=== PATIENT | male | born 1980 | race Caucasian/White ===

== ENCOUNTER 2021-07-31 10:28 | Emergency (ER) | payer BC ==
[~2021-07-31] VITALS: Ht 172.7 cm; Wt 99.7 kg
[2021-07-31] MEDS ORDERED: ASPIRIN 81 MG CHEW (CHILDREN'S ASA) PO ONE (10:45)
[2021-07-31] MEDS ORDERED: NITROGLYCERIN 0.4 MG SL TABS BTL 25'S SL PRN (10:45)
--- NOTE | 2021-07-31 10:48 | ED Chest Pain ---
General Chief Complaint: Chest Pain Stated Complaint: CHEST PAIN Source: patient Exam Limitations: no limitations History of Present Illness Date Seen by Provider: Jul 31, 2021 Time Seen by Provider: 10:30 Initial Comments Patient to the ER by private conveyance from home with chief complaint that he is having some chest pain starting on his right lower chest radiating over to his left lower chest. Not going to the back. He is having some intermittent chest pain radiating to his left shoulder as well as his right jaw. He has a history of a stent couple years ago. He is followed by Dr. Diego and primary care at [place]. He is not having any shortness of air, orthopnea, swelling in the hands or legs. He is not having nausea fevers chills cough shortness of air. He has exercise intolerance and getting up and moving makes it worse. He says it started yesterday and has been consistent since then. He was sitting at his desk when it started not doing anything strenuous. Smokes, uses some marijuana occasionally. No history of diabetes. Does have a history of hypertension hypercholesterolemia. Allergies and Home Medications Allergies Coded Allergies: No Known Drug Allergies (Unverified , 07/31/21) Patient Home Medication List Home Medication List Reviewed: Yes Review of Systems Review of Systems Constitutional: No chills, No fever, No malaise EENTM: No Blurred Vision, No Double Vision Respiratory: Denies Cough, Denies Shortness of Air Cardiovascular: See HPI, Chest Pain; Denies Lightheadedness, Denies Palpitations Gastrointestinal: Denies Abdominal Pain, Denies Constipated, Denies Diarrhea, Denies Difficulty Swallowing, Denies Nausea Genitourinary: Denies Burning, Denies Discharge Musculoskeletal: No back pain, No joint pain Skin: No pruritus, No rash Psychiatric/Neurological: Denies Anxiety, Denies Depressed All Other Systems Reviewed Negative Unless Noted: Yes Past Vyebcmk-Opijgs-Kvfwst Hx Patient Social History Tobacco Use?: Yes Tobacco type used: Cigarettes Smoking Status: Current Someday Smoker Use of E-Cig and/or Vaping dev: No Substance use?: Yes Substance type: Marijuana Pt feels they are or have been: No Immunizations Up To Date Influenza Vaccine Up-to-Date: No; Not Current Past Medical History Surgery/Hospitalization HX: STENT Physical Exam Vital Signs Vital Signs - First Documented 07/31/21 10:35 Pulse 76 Resp 17 B/P (MAP) 156/98 (117) Pulse Ox 98 O2 Delivery Room Air Capillary Refill : Less Than 3 Seconds Height, Weight, BMI Height: '" Weight: lbs. oz. kg; BMI Method: General Appearance: WD/WN, Anxious HEENT: PERRL/EOMI, TMs Normal, Pharynx Normal, Moist Mucous Membranes Neck: Normal Inspection, Non Tender Respiratory: No Chest Non Tender (And chest pain reproducible by direct palpation over the costal margins anteriorly bilaterally.); Lungs Clear, Normal Breath Sounds, No Accessory Muscle Use, No Respiratory Distress Cardiovascular: Regular Rate, Rhythm, No Edema, Normal Peripheral Pulses Gastrointestinal: Normal Bowel Sounds, Non Tender, Soft Extremity: Normal Capillary Refill, Normal Inspection, No Pedal Edema Neurologic/Psychiatric: Alert, Oriented x3 Skin: Normal Color, Warm/Dry Progress/Results/Core Measures Results/Orders Lab Results Laboratory Tests Test 07/31/21 10:55 07/31/21 13:06 Range/Units White Blood Count 10.9 4.3-11.0 10^3/uL Red Blood Count 5.23 4.30-5.52 10^6/uL Hemoglobin 15.7 13.3-17.7 g/dL Hematocrit 45 40-54 % Mean Corpuscular Volume 86 80-99 fL Mean Corpuscular Hemoglobin 30 25-34 pg Mean Corpuscular Hemoglobin Concent 35 32-36 g/dL Red Cell Distribution Width 13.1 10.0-14.5 % Platelet Count 270 130-400 10^3/uL Mean Platelet Volume 9.5 9.0-12.2 fL Immature Granulocyte % (Auto) 0 % Neutrophils (%) (Auto) 64 42-75 % Lymphocytes (%) (Auto) 26 12-44 % Monocytes (%) (Auto) 6 0-12 % Eosinophils (%) (Auto) 3 0-10 % Basophils (%) (Auto) 1 0-10 % Neutrophils # (Auto) 7.0 1.8-7.8 10^3/uL Lymphocytes # (Auto) 2.9 1.0-4.0 10^3/uL Monocytes # (Auto) 0.7 0.0-1.0 10^3/uL Eosinophils # (Auto) 0.3 0.0-0.3 10^3/uL Basophils # (Auto) 0.1 0.0-0.1 10^3/uL Immature Granulocyte # (Auto) 0.0 0.0-0.1 10^3/uL Prothrombin Time 14.0 12.2-14.7 SEC INR Comment 1.0 0.8-1.4 Activated Partial Thromboplast Time 31 24-35 SEC Sodium Level 138 135-145 MMOL/L Potassium Level 4.1 3.6-5.0 MMOL/L Chloride Level 106 98-107 MMOL/L Carbon Dioxide Level 22 21-32 MMOL/L Anion Gap 10 5-14 MMOL/L Blood Urea Nitrogen 16 7-18 MG/DL Creatinine 0.95 0.60-1.30 MG/DL Estimat Glomerular Filtration Rate 102 BUN/Creatinine Ratio 17 Glucose Level 97 70-105 MG/DL Calcium Level 9.6 8.5-10.1 MG/DL Corrected Calcium 9.2 8.5-10.1 MG/DL Magnesium Level 2.2 1.6-2.4 MG/DL Total Bilirubin 0.7 0.1-1.0 MG/DL Aspartate Amino Transf (AST/SGOT) 20 5-34 U/L Alanine Aminotransferase (ALT/SGPT) 32 0-55 U/L Alkaline Phosphatase 88 40-136 U/L Myoglobin 63.4 10.0-92.0 NG/ML Troponin I < 0.028 < 0.028 <0.028 NG/ML Total Protein 7.8 6.4-8.2 GM/DL Albumin 4.5 3.2-4.5 GM/DL Lipase 23 8-78 U/L My Orders Orders - SKYTHOMAS J Cbc With Automated Diff (07/31/21 10:41) Magnesium (07/31/21 10:41) Chest 1 View, Ap/Pa Only (07/31/21 10:41) Ekg Tracing (07/31/21 10:41) Comprehensive Metabolic Panel (07/31/21 10:41) Myoglobin Serum (07/31/21 10:41) Protime With Inr (07/31/21 10:41) Partial Thromboplastin Time (07/31/21 10:41) O2 (07/31/21 10:41) Monitor-Rhythm Ecg Trace Only (07/31/21 10:41) Lipid Panel (08/01/21 06:00) Ed Iv/Invasive Line Start (07/31/21 10:41) Lipase (07/31/21 10:41) Troponin I [place] (07/31/21 10:41) Nitroglycerin 0.4 Mg Btl 25's (Nitrostat (07/31/21 10:45) Aspirin Chewable Tablet (Baby Aspirin Ch (07/31/21 10:45) Troponin I [place] (07/31/21 13:00) Medications Given in ED Current Medications Medications Dose Ordered Sig/Bruce Route Start Time Stop Time Status Last Admin Dose Admin Aspirin 243 mg ONCE ONCE PO 07/31/21 10:45 07/31/21 10:46 DC 07/31/21 10:50 243 MG Nitroglycerin 0.4 mg UD PRN SL 07/31/21 10:45 07/31/21 10:51 0.4 MG Vital Signs/I&O 07/31/21 10:35 Pulse 76 Resp 17 B/P (MAP) 156/98 (117) Pulse Ox 98 O2 Delivery Room Air Progress Progress Note #1: Time: 10:52 Progress Note Differential includes but is not limited to costochondral pain, ACS, pancreatitis, gastritis, other. Initial EKG is okay. Plan to give him some aspirin 3 tablets to make up for his 1 tablet he took this morning and trial nitroglycerin Progress Note #2: Time: 12:16 Progress Note Discussed the case with Dr. Ruiz, cardiology and since the patient is pain- free after a dose of nitroglycerin he would recommend a 2 to 3-hour delta troponin since the pain started yesterday. If the second opponent is negative and the patient is pain-free he can follow-up with Dr. Diego in the clinic. We will send him home with his nitroglycerin. Return instructions are given. Patient is okay with this plan. We discussed possibility of other differential diagnoses and recommended follow-up with primary care doctor if the certified wellness program manager determines it is not stable angina. Initial ECG Impression Date: Jul 31, 2021 Initial ECG Impression Time: 10:44 Initial ECG Rate: 69 Initial ECG Rhythm: Normal Sinus Initial ECG Intervals: Normal Initial ECG Impression: Normal Comment Normal sinus rhythm without clinically relevant ST changes Diagnostic Imaging Diagonstic Imaging: Xray Plain Films/CT/US/NM/MRI: chest Comments [facility], [place] NAME: SHYAM HERNÁNDEZ [facility] REC#: [id number] PT STATUS: REG ER : 1980 PHYSICIAN: THOMAS SWANSON MD ADMIT DATE: 07/31/21/ER Signed Date of Exam:07/31/21 CHEST 1 VIEW, AP/PA ONLY EXAMINATION: Chest 1 view HISTORY: Chest pain COMPARISON: None available. FINDINGS: Heart size and pulmonary vasculature are normal. The lungs are clear without consolidation, pleural effusion, or pneumothorax. The osseous structures are intact. IMPRESSION: 1. No acute radiographic abnormality in the chest. Dictated by: Dictated on workstation # [id number] Dict: 07/31/21 1113 Trans: 07/31/21 1120 [id number] Interpreted by: CARMEN ALVARADO DO Electronically signed by: CARMEN ALVARADO DO 07/31/21 1120 Reviewed: Reviewed by Me Departure Impression Primary Impression: Chest pain Qualified Codes: R07.9 - Chest pain, unspecified Disposition: 01 HOME, SELF-CARE Condition: Stable Departure-Patient Inst. Decision time for Depature: 13:58 Referrals: DIOR TORRES MD (PCP/Family) Primary Care Physician Patient Instructions: Angina (DC) Add. Discharge Instructions: Call Dr. Diego and request follow-up appointment within the next week. Nitroglycerin 1 tablet every 15 minutes for chest pain as needed. If your chest pain is not resolved in 3 tablets or you are using more than 3 tablets in a day then you need to return to the ER for further evaluation. All discharge instructions reviewed with patient and/or family. Voiced understanding. Scripts Nitroglycerin (Nitroglycerin) 0.4 Mg Tab.subl 0.4 MG SL Q15M PRN for CHEST PAIN (ANGINA), #24 TAB 0 Refills Prov: THOMAS SWANSON 07/31/21 Work/School Note: Work Release Form Date Seen in the Emergency Department: Jul 31, 2021 Return to Work: Aug 01, 2021 Restrictions: No Restrictions THOMAS SWANSON Jul 31, 2021 10:48
[2021-07-31 11:09] LABS: BASOPHILS # (AUTO) 0.1 10^3/uL (0.0-0.1); BASOPHILS % (AUTO) 1 % (0-10); EOSINOPHILS # (AUTO) 0.3 10^3/uL (0.0-0.3); EOSINOPHILS % (AUTO) 3 % (0-10); HEMATOCRIT 45 % (40-54); HEMOGLOBIN 15.7 g/dL (13.3-17.7); LYMPHOCYTES # (AUTO) 2.9 10^3/uL (1.0-4.0); LYMPHOCYTES % (AUTO) 26 % (12-44); MEAN CORPUSCULAR HEMOGLOBIN 30 pg (25-34); MEAN CORPUSCULAR HGB CONC 35 g/dL (32-36); MEAN CORPUSCULAR VOLUME 86 fL (80-99); MEAN PLATELET VOLUME 9.5 fL (9.0-12.2); MONOCYTES # (AUTO) 0.7 10^3/uL (0.0-1.0); MONOCYTES % (AUTO) 6 % (0-12); NEUTROPHILS % (AUTO) 64 % (42-75); PLATELET COUNT 270 10^3/uL (130-400); WHITE BLOOD COUNT 10.9 10^3/uL (4.3-11.0)
--- NOTE | 2021-07-31 11:14 | Diagnostic Imaging Report ---
EXAMINATION: Chest 1 view HISTORY: Chest pain COMPARISON: None available. FINDINGS: Heart size and pulmonary vasculature are normal. The lungs are clear without consolidation, pleural effusion, or pneumothorax. The osseous structures are intact. IMPRESSION: 1. No acute radiographic abnormality in the chest. Dictated by: Dictated on workstation # [id number]
[2021-07-31 11:18] LABS: ALBUMIN 4.5 GM/DL (3.2-4.5); POTASSIUM 4.1 MMOL/L (3.6-5.0)
[2021-07-31 11:20] LABS: CALCIUM 9.6 MG/DL (8.5-10.1)
[2021-07-31 11:21] LABS: TOTAL PROTEIN 7.8 GM/DL (6.4-8.2)
[2021-07-31 11:23] LABS: BILIRUBIN,TOTAL 0.7 MG/DL (0.1-1.0)
[2021-07-31 11:24] LABS: CREATININE SERUM 0.95 MG/DL (0.60-1.30)
[2021-07-31 11:27] LABS: MAGNESIUM 2.2 MG/DL (1.6-2.4)
[2021-07-31] MEDS ORDERED: NITR0.4T42 SL (14:03)
[2021-07-31 14:24] VITALS: BP 130/86
== END 2021-07-31 14:24 | disposition home or self-care (01) ==
LOC: ER 10:30
DX: R07.9 Chest pain, unspecified (principal); F17.210 Nicotine dependence, cigarettes, uncomplicated
CPT/HCPCS: 36415; 71045; 80053; 83690; 83735; 83874; 84484; 85025; 85610; 85730; 93005; 93041